=== PATIENT | female | born 1995 | race Caucasian/White ===

== ENCOUNTER → 2017-08-18 | Outpatient (CLI) | payer BC, OTHER ==
--- NOTE | 2017-08-18 10:25 | US ---
THYROID ULTRASOUND CLINICAL INFORMATION: Nontoxic goiter TECHNIQUE: Grayscale and color Doppler sonographic evaluations of thyroid gland COMPARISON: None FINDINGS: Right thyroid lobe measures 1.6 x 1.7 x 4.9 cm. Left lobe measures 1.6 x 1.3 x 5.5 cm. Isthmus measures 3.6 mm in maximal depth. Homogeneous and unremarkable echotexture throughout thyroid gland. No focal nodularity nor concerning vascularity nor cystic changes identified. IMPRESSION: Unremarkable sonographic appearance of enlarged thyroid gland. No concerning nodularity nor vascularity nor mass. . Electronically signed by: Rusty Zaman MD 08/18/2017 10:24 AM [employer]
== END ==
LOC: US 08:25
PROVIDERS: ATTEND Nurse Practitioner Family
DX: E04.9 Nontoxic goiter, unspecified (principal)

== ENCOUNTER 2019-11-26 12:22 | Emergency (ER) | payer BC, OTHER ==
[2019-11-26] MEDS ORDERED: ONDANSETRON ODT 8 MG TAB SL ONE (12:39)
[2019-11-26] MEDS ORDERED: SODIUM CHLORIDE 0.9% 1000ML 1,000 ML IVS ONE (13:37)
--- NOTE | 2019-11-26 14:17 | RAD ---
XR CHEST 1 VIEW CLINICAL STATEMENT: ruq pain, nv COMPARISON: None FINDINGS: Cardiomediastinal silhouette is within normal limits. There is no focal lung consolidation or pleural effusion. No evidence of pulmonary edema or pneumothorax. IMPRESSION: No acute cardiopulmonary disease. Electronically signed by: Marc Ford MD 11/26/2019 2:16 PM CDT
--- NOTE | 2019-11-26 14:19 | CT ---
CT abdomen and pelvis with IV contrast HISTORY: Nausea, vomiting, right upper quadrant pain. This exam was performed according to our departmental dose-optimization program which includes automated exposure control, adjustment of the mA and/or kVp according to patient size and/or use of iterative reconstruction technique where applicable. FINDINGS: Visualized lung bases are within normal limits. Liver, spleen, pancreas, gallbladder, adrenal glands and kidneys are within normal limits. No hydronephrosis or biliary dilatation. Moderate duodenal wall thickening and inflammation is noted consistent with duodenitis. No significant fluid collections. No dilated loops of bowel to suggest obstruction. Mild amount of stool in the colon. The appendix is normal. No abdominal or pelvic lymphadenopathy. Abdominal aorta is within normal limits. Bladder is unremarkable. Gynecologic organs are unremarkable. IMPRESSION: Moderate duodenitis is noted. This may be due to peptic ulcer disease or duodenal inflammation. No abscess. No free air. Electronically signed by: Marc Ford MD 11/26/2019 2:18 PM CDT
--- NOTE | 2019-11-26 14:31 | ED.PDOC ---
History of Present Illness - General Chief Complaint: Abdominal Pain Stated Complaint: abd pain, nausea, vomiting Time Seen by Provider: 11/26/19 12:38 Source: patient Exam Limitations: no limitations - History of Present Illness Initial Comments: Patient is a 24-year-old female presented emergency room secondary to abdominal pain primarily to the right upper quadrant for the last 3 days. She had some nausea and vomiting yesterday but no blood. No diarrhea. No melena. No history of any gallbladder, pancreas or appendix issues. No dietary intolerances. No definite fever. She does have some right upper quadrant discomfort to palpation. No rebound. No definite peritoneal signs. No obvious palpable mass. She denies any family history of any early GI issues. Timing/Duration: other - 3 days Severity: moderate Improving Factors: nothing Worsening Factors: eating Associated Symptoms: loss of appetite, malaise, nausea/vomiting Allergies/Adverse Reactions: Allergies NO KNOWN ALLERGY Allergy (Verified 11/26/19 12:35) Home Medications: Ambulatory Orders Amoxicillin & Pot Clavulanate [Augmentin Tab] 875 mg PO BID #20 tab 11/26/19 Cetirizine HCl [ZyrTEC] 10 mg PO DAILY 11/26/19 Clarithromycin 500 mg PO BID #20 tab 11/26/19 Omeprazole 40 mg PO BID #60 cap 11/26/19 Ondansetron Odt [Zofran ODT] 4 mg PO Q8HR PRN #5 tab 11/26/19 Sucralfate Tab [Carafate Tab] 1 gm PO QID #120 tab 11/26/19 Review of Systems - Review of Systems Constitutional: States: no symptoms reported EENTM: States: no symptoms reported Respiratory: States: no symptoms reported Cardiology: States: no symptoms reported Gastrointestinal/Abdominal: States: abdominal pain, nausea Genitourinary: States: no symptoms reported Musculoskeletal: States: no symptoms reported Skin: States: no symptoms reported Neurological: States: no symptoms reported Endocrine: States: no symptoms reported All other Systems: No Change from Baseline Past Medical History (General) - Patient Medical History Hx Seizures: No Hx Stroke: No Hx Dementia: No Hx Asthma: No Hx of COPD: No Hx Cardiac Disorders: No Hx Congestive Heart Failure: No Hx Pacemaker: No Hx Hypertension: No Hx Thyroid Disease: No Hx Diabetes: No Hx Gastroesophageal Reflux: No Hx Renal Disease: No Hx Cancer: No Hx of HIV: No Hx Hepatitis C: No Hx MRSA: No Surgical History: no surgical history - Vaccination History Hx Tetanus, Diphtheria Vaccination: No Hx Influenza Vaccination: No Hx Pneumococcal Vaccination: No - Social History Hx Tobacco Use: Yes Hx Alcohol Use: Yes - Female History Patient is a Female of Child Bearing Age (10 -59 yrs old): Yes Family Medical History - Family History Mother Family History: Unknown Living Status: Unknown Physical Exam - Physical Exam General Appearance: Alert, Comfortable, No apparent distress Eye Exam: bilateral normal Ears, Nose, Throat: hearing grossly normal, normal ENT inspection Neck: full range of motion, supple Respiratory: lungs clear, normal breath sounds, no respiratory distress, no accessory muscle use Cardiovascular/Chest: normal peripheral pulses, regular rate, rhythm, no edema Peripheral Pulses: radial,right: 2+, radial,left: 2+ Gastrointestinal/Abdominal: soft, other - Mid to right upper quadrant abdominal discomfort to palpation. No definite rebound or peritoneal signs. No definite palpable mass. 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 The patient will be placed on 10 days of clarithromycin and Augmentin. She will also be placed on Carafate and omeprazole to help reduce stomach acid. She can additionally take liquid Maalox as needed. She will also be written for Zofran for as needed use to control any nausea or vomiting. She needs to maintain a bland liquid diet for the next few days. After that she can progress her diet. The patient does have a small urinary tract infection in the urine will be cultured. The above antibiotic should cover that adequately. The patient has laboratory work that could indicate a very mild pancreatitis. The liquid diet and medicines above should also help with that. If the patient is not improving over the next 48 to 72 hours, then she needs to be reevaluated with her primary care doctor. Otherwise she needs to see her primary care doctor in 1 week. ER warnings are given for any acute worsening. laureano smith [id number] - Results/Orders Results/Orders: Laboratory Tests 11/26/19 11/26/19 11/26/19 12:59 12:59 12:59 WBC 8.6 RBC 4.58 Hgb 14.3 Hct 42.1 MCV 91.7 MCH 31.2 H MCHC 34.0 RDW 13.3 Plt Count 269 MPV 8.1 Absolute Neuts (auto) 4.70 Absolute Lymphs (auto) 2.50 Absolute Monos (auto) 0.60 Absolute Eos (auto) 0.70 H Absolute Basos (auto) 0.10 Neutrophils % 55.0 Lymphocytes % 28.8 Monocytes % 7.0 Eosinophils % 7.9 H Basophils % 1.3 Sodium 138 Potassium 3.6 Chloride 105 Carbon Dioxide 23 Anion Gap 13.6 BUN 11 Creatinine 0.75 BUN/Creatinine Ratio 14.7 Random Glucose 88 Serum Osmolality 274.5 L Calcium 9.2 Total Bilirubin 0.7 AST 18 ALT 13 Alkaline Phosphatase 62 Creatine Kinase 59 CK-MB (CK-2) 0.7 Troponin I < 0.02 Serum Total Protein 8.2 Albumin 5.0 Globulin 3.2 Albumin/Globulin Ratio 1.6 Amylase 211 H* Lipase 207 H Serum HCG, Qual Urine Color Urine Appearance Urine pH Ur Specific [place] Urine Protein Urine Glucose (UA) Urine Ketones Urine Blood Urine Nitrite Urine Bilirubin Urine Urobilinogen Ur Leukocyte Esterase Urine RBC Urine WBC Ur Epithelial Cells Urine Bacteria 11/26/19 11/26/19 12:59 13:01 WBC RBC Hgb Hct MCV MCH MCHC RDW Plt Count MPV Absolute Neuts (auto) Absolute Lymphs (auto) Absolute Monos (auto) Absolute Eos (auto) Absolute Basos (auto) Neutrophils % Lymphocytes % Monocytes % Eosinophils % Basophils % Sodium Potassium Chloride Carbon Dioxide Anion Gap BUN Creatinine BUN/Creatinine Ratio Random Glucose Serum Osmolality Calcium Total Bilirubin AST ALT Alkaline Phosphatase Creatine Kinase CK-MB (CK-2) Troponin I Serum Total Protein Albumin Globulin Albumin/Globulin Ratio Amylase Lipase Serum HCG, Qual Negative Urine Color Yellow Urine Appearance Sl cloudy Urine pH 6.5 Ur Specific [place] 1.025 Urine Protein Negative Urine Glucose (UA) Negative Urine Ketones Negative Urine Blood Trace-lysed H Urine Nitrite Negative Urine Bilirubin Negative Urine Urobilinogen 0.2 Ur Leukocyte Esterase Large H Urine RBC 0-1 Urine WBC 20-30 H Ur Epithelial Cells 5-10 Urine Bacteria 2+ H Chest x-ray appears benign. See report for details. CT of abdomen pelvis shows what appears to be duodenitis. See report for details. - EKG/XRAY/CT CT Ordered: No Departure - Departure Clinical Impression: Duodenitis, Cystitis Disposition: Discharge to Home or Self Care Condition: Fair Departure Forms: ED Discharge - Pt. Copy, Patient Portal Self Enrollment Instructions: Pancreatitis (DC), Urinary Tract Infection, Adult (DC) Diet: bland diet Activity: increase activity as tolerated Referrals: Yuko Valencia NP [Primary Care Provider] - 1-2 Weeks Prescriptions: Ondansetron Odt [Zofran ODT] 4 mg PO Q8HR PRN #5 tab PRN Reason: Nausea--Moderate Amoxicillin & Pot Clavulanate [Augmentin Tab] 875 mg PO BID #20 tab Clarithromycin 500 mg PO BID #20 tab Omeprazole 40 mg PO BID #60 cap Sucralfate Tab [Carafate Tab] 1 gm PO QID #120 tab Home Medications: Ambulatory Orders Amoxicillin & Pot Clavulanate [Augmentin Tab] 875 mg PO BID #20 tab 11/26/19 Cetirizine HCl [ZyrTEC] 10 mg PO DAILY 11/26/19 Clarithromycin 500 mg PO BID #20 tab 11/26/19 Omeprazole 40 mg PO BID #60 cap 11/26/19 Ondansetron Odt [Zofran ODT] 4 mg PO Q8HR PRN #5 tab 11/26/19 Sucralfate Tab [Carafate Tab] 1 gm PO QID #120 tab 11/26/19 Additional Instructions: The patient is a 24-year-old female presented emergency room with what appears to be duodenitis based on CT scan. The patient will be placed on 10 days of clarithromycin and Augmentin. She will also be placed on Carafate and omeprazole to help reduce stomach acid. She can additionally take liquid Maalox as needed. She will also be written for Zofran for as needed use to control any nausea or vomiting. She needs to maintain a bland liquid diet for the next few days. After that she can progress her diet. The patient does have a small urinary tract infection in the urine will be cultured. The above antibiotic should cover that adequately. The patient has laboratory work that could indicate a very mild pancreatitis. The liquid diet and medicines above should also help with that. If the patient is not improving over the next 48 to 72 hours, then she needs to be reevaluated with her primary care doctor. Otherwise she needs to see her primary care doctor in 1 week. ER warnings are given for any acute worsening.
[2019-11-26 15:30] VITALS: BP 122/74; TEMP 97.4; O2SAT 100
== END 2019-11-26 15:31 | disposition home or self-care (01) ==
LOC: ER 12:22
DX: N30.00 Acute cystitis without hematuria (principal); K29.80 Duodenitis without bleeding
CPT/HCPCS: 36415; 71045; 74177; 80053; 81001; 82150; 82550; 82553; 83690; 84484; 84703; 85025; 87086; J7030